=== PATIENT | male | born 1980 | race Caucasian/White ===

== ENCOUNTER 2017-02-09 17:48 | Emergency (ER) | payer SELFPAY ==
[2017-02-09 17:54] VITALS: O2SAT 98
--- NOTE | 2017-02-09 18:19 | C.PDOC ---
History Of Present Illness 36 y/o male presents to the ED for evaluation of right upper quadrant abdominal pain which has been occurring in intermittent episodes for the past 4 days. Patient describes his pain as sharp, 10/10 in severity and notes it is worse when he eats. Patient describes it as a nagging pain. Patient has PMHx of renal colic and appendectomy and notes his current symptoms feel similar to both. Patient also notes nausea and reports he vomited a small amount today. Patient has not been able to tolerate PO intake, states he could not eat breakfast. He also reports generalized weakness and malaise. He denies fever, chills headache , dizziness, chest pain and shortness of breath. Time Seen by Provider: 02/09/17 18:15 Chief Complaint (Nursing): Abdominal Pain History Per: Patient History/Exam Limitations: no limitations Onset/Duration Of Symptoms: Days (4), Intermittent Episodes Current Symptoms Are (Timing): Still Present Location Of Pain/Discomfort: RUQ Quality Of Discomfort: "Pain" Associated Symptoms: denies: Fever, Chills Additional History Per: Patient Past Medical History Reviewed: Historical Data, Nursing Documentation, Vital Signs Vital Signs: Last Vital Signs Temp 98.5 F 02/09/17 17:52 Pulse 70 02/09/17 17:52 Resp 19 02/09/17 17:52 BP 116/67 02/09/17 17:52 Pulse Ox 98 02/09/17 18:45 - Medical History PMH: Back Problems, Kidney Stones Surgical History: Appendectomy Family History: States: Unknown Family Hx - Social History Hx Tobacco Use: No Hx Alcohol Use: Yes Hx Substance Use: Yes - Immunization History Hx Tetanus Toxoid Vaccination: No Hx Influenza Vaccination: No Hx Pneumococcal Vaccination: No Review Of Systems Constitutional: Positive for: Weakness, Malaise. Negative for: Fever, Chills Cardiovascular: Negative for: Chest Pain Respiratory: Negative for: Shortness of Breath Gastrointestinal: Positive for: Abdominal Pain (RUQ) Neurological: Negative for: Headache, Dizziness Physical Exam - Physical Exam Appears: Non-toxic, No Acute Distress, Other (+painful distress ) Skin: Normal Color, Warm, Dry Head: Atraumatic, Normacephalic Eye(s): bilateral: Normal Inspection Ear(s): Bilateral: Normal Nose: Normal, No Discharge Oral Mucosa: Moist Throat: Normal, No Erythema, No Exudate Neck: Normal ROM, Supple Chest: Symmetrical, No Deformity, Tenderness (costovertebral angle) Cardiovascular: Rhythm Regular, No Murmur Respiratory: Normal Breath Sounds, No Rales, No Rhonchi, No Wheezing Gastrointestinal/Abdominal: Tenderness (RUQ ), No Guarding, No Rebound Back: Normal Inspection, No Vertebral Tenderness Extremity: Normal ROM, Capillary Refill (less than 2 seconds ) Neurological/Psych: Normal Speech, Normal Cognition ED Course And Treatment - Laboratory Results Result Diagrams: 02/09/17 18:30 02/09/17 18:30 O2 Sat by Pulse Oximetry: 98 (on RA) Pulse Ox Interpretation: Normal Medical Decision Making Medical Decision Making: Impression: 36 y/o male with RUQ pain Differential Diagnoses: cholecystitis vs renal colic Progress: labs, US Abdomen ordered and reviewed. Patient received Donnataol PO, Lidocaine 2% Viscous, Maalox PO, Morphine IV, Pepcid IV, Toradol IV, and IVF. Disposition - Disposition Disposition Time: 18:59 Condition: GUARDED - Clinical Impression Clinical Impression: Abdominal pain - Scribe Statement The provider has reviewed the documentation as recorded by the Scribe (Joan Cobian) Provider Attestation: All medical record entries made by the Scribe were at my direction and personally dictated by me. I have reviewed the chart and agree that the record accurately reflects my personal performance of the history, physical exam, medical decision making, and the department course for this patient. I have also personally directed, reviewed, and agree with the discharge instructions and disposition. Physician Patient Turnover Patient Signed Over To: José Luis Soto Handoff Comments: RUQ pain, pending US
[2017-02-09] MEDS ORDERED: Sodium Chloride 0.9% 1,000 ML IV ONE (18:20)
[2017-02-09] MEDS ORDERED: Lidocaine 2% Viscous 100 ml PO STA (18:20)
[2017-02-09] MEDS ORDERED: Belladonna-Phenobarbital PO STA (18:20)
[2017-02-09] MEDS ORDERED: Aluminum Hydroxide/Magnesium Hydroxide Susp (30 mL) PO STA (18:20)
[2017-02-09] MEDS ORDERED: Sodium Chloride 0.9% 1,000 ML ONE (18:33)
[2017-02-09] MEDS ORDERED: Aluminum Hydroxide/Magnesium Hydroxide Susp (30 mL) ONE (18:35)
[2017-02-09 18:40] LABS: BASO # 0.1 K/uL (0.0-0.2); BASO % 0.7 % (0.0-2.0); EOS # 0.2 K/uL (0.0-0.7); EOS % 1.7 % (0.0-4.0); HEMOGLOBIN 14.9 g/dL (12.0-18.0); LYMPH # 2.5 K/uL (1.0-4.3); LYMPH % 27.2 % (20.0-40.0); MEAN CELL VOLUME 93.2 fL (80.0-94.0); MEAN CORPUSCULAR HEMOGLOBIN 31.7 pg (27.0-31.0); MEAN CORPUSCULAR HGB CONC 34.1 g/dL (33.0-37.0); MEAN PLATELET VOLUME 9.5 fL (7.2-11.7); MONO # 0.7 K/uL (0.0-0.8); MONO % 7.8 % (0.0-10.0); NEUT # 5.8 K/uL (1.8-7.0); NEUT % 62.6 % (50.0-75.0); RBC 4.7 Mil/uL (4.40-5.90); RED CELL DISTRIBUTION WIDTH 12.4 % (11.5-14.5); WHITE BLOOD COUNT 9.3 K/uL (4.8-10.8)
[2017-02-09 18:42] LABS: URINE BILIRUBIN NEGATIVE (NEGATIVE); URINE BLOOD NEGATIVE (NEGATIVE); URINE CLARITY Clear (Clear); URINE COLOR Straw (YELLOW); URINE GLUCOSE (UA) NORMAL (Normal); URINE LEUKOCYTE ESTERASE NEG Leu/uL (Negative); URINE NITRATE NEGATIVE (NEGATIVE); URINE PROTEIN NEGATIVE (NEGATIVE); URINE UROBILINOGEN NORMAL mg/dL (0.2-1.0)
[2017-02-09 18:46] LABS: ALBUMIN 4.1 g/dL (3.5-5.0); BARBITURATES, UR NEGATIVE (NEGATIVE)
[2017-02-09 18:47] LABS: BENZODIAZEPINES, UR NEGATIVE (NEGATIVE)
[2017-02-09 18:49] LABS: GFR AFRICAN-AMERICAN > 60; GFR NON-AFRICAN AMERICAN > 60; PROTHROMBIN TIME 11.6 SECONDS (9.7-12.2)
[2017-02-09 18:50] LABS: ALB/GLOB RATIO 1.6 (1.0-2.1); ALT/SGPT 27 U/L (21-72); AST/SGOT 19 U/L (17-59); BLOOD UREA NITROGEN 8 mg/dL (9-20); CALCIUM 8.9 mg/dl (8.6-10.4); LIPASE 59 U/L (23-300); OPIATES, UR NEGATIVE (NEGATIVE); PHENCYCLIDINE, UR NEGATIVE (NEGATIVE)
[2017-02-09] MEDS ORDERED: Belladonna-Phenobarbital ONE ×2 (19:28→20:46)
--- NOTE | 2017-02-09 20:26 | US ---
EXAM: US Abdomen Limited, Right Upper Quadrant CLINICAL HISTORY: 36 years old, male; Pain; Abdominal pain; Epigastric; Additional info: Abd pain TECHNIQUE: Real-time ultrasound of the right upper quadrant with image documentation. EXAM DATE/TIME: 02/09/2017 6:22 PM COMPARISON: There are no prior studies for comparison. FINDINGS: Liver: Liver is unremarkable.There is hepatopedal flow in the main portal vein. Gallbladder: Gallbladder is distended with no stones, sludge or wall thickening. Common bile duct: Common bile duct measures 4.4 mm in diameter in the rose hepatis Pancreas: Pancreas is partially obscured by bowel gas. Visualized portion is unremarkable. Right kidney: Right kidney is unremarkable. Aorta: Visualized portions of the aorta and inferior vena cava are unremarkable. IMPRESSION: Slightly limited visualization of the pancreas, study is otherwise normal
[2017-02-09] MEDS ORDERED: Pantoprazole 40 mg EC Tab PO STA (21:17)
[2017-02-09] MEDS ORDERED: Pantoprazole 40 mg EC Tab PO ONE (21:22)
[2017-02-09 21:31] VITALS: BP 106/60; PULSE 60; RESP 16; TEMP 98.1
== END 2017-02-09 21:32 | disposition home or self-care (01) ==
LOC: C.ER 17:48
DX: R10.11 Right upper quadrant pain (principal)
CPT/HCPCS: 76705; 80053; 81001; 83690; 85025; 85610; 85730; 96361; 96374; 96375; 99284; G0480; J1885; J2270; J7040

== ENCOUNTER 2017-08-15 22:02 | Emergency (ER) | payer OTHER ==
[2017-08-15] MEDS ORDERED: MethylPREDNISolone 40 mg Vial IM STA (23:00)
[2017-08-15 23:02] VITALS: BP 127/75; PULSE 83; RESP 20; TEMP 98.3; O2SAT 98
[2017-08-15] MEDS ORDERED: MethylPREDNISolone 40 mg Vial ONE (23:08)
--- NOTE | 2017-08-15 23:56 | C.PDOC ---
History Of Present Illness 36 year old male presents to the ED c/o sudden onset rash which is described as itchiness all over his body that started at approximately 14:00 today. Patient is unsure of any new foods that maybe have cause his symptoms. Patient denies fever, chills, nausea, vomit, diarrhea, abdominal pain, tongue swelling, throat swelling, lip swelling, recent travel, sick contacts. Time Seen by Provider: 08/15/17 22:42 Chief Complaint (Nursing): Abnormal Skin Integrity History Per: Patient History/Exam Limitations: no limitations Current Symptoms Are (Timing): Still Present Quality Of Symptoms: Itching Recent travel outside of the [place]: No Additional History Per: Patient Past Medical History Reviewed: Historical Data, Nursing Documentation, Vital Signs Vital Signs: Last Vital Signs Temp 98.3 F 08/15/17 22:27 Pulse 83 08/15/17 22:27 Resp 20 08/16/17 00:07 BP 127/75 08/15/17 22:27 Pulse Ox 98 08/17/17 05:45 - Medical History PMH: Back Problems, Kidney Stones, Sexually Transmitted Disease Surgical History: Appendectomy Family History: States: Unknown Family Hx - Social History Hx Tobacco Use: No Hx Alcohol Use: Yes Hx Substance Use: No (stopped) - Immunization History Hx Tetanus Toxoid Vaccination: No Hx Influenza Vaccination: No Hx Pneumococcal Vaccination: No Review Of Systems Constitutional: Negative for: Fever, Chills Cardiovascular: Negative for: Chest Pain, Palpitations Respiratory: Negative for: Cough, Shortness of Breath Gastrointestinal: Negative for: Nausea, Vomiting, Abdominal Pain, Diarrhea Skin: Positive for: Rash Neurological: Negative for: Weakness, Numbness Physical Exam - Physical Exam Appears: Non-toxic, No Acute Distress Skin: Warm, Dry, Rash (Urticarial all over body) Head: Atraumatic, Normacephalic Eye(s): bilateral: Normal Inspection Nose: No Discharge, No Deformity Oral Mucosa: Moist Tongue: No Swelling Lips: No Swelling Throat: Normal, No Erythema, No Exudate Chest: Symmetrical Cardiovascular: Rhythm Regular, No Murmur Respiratory: Normal Breath Sounds, No Rales, No Rhonchi, No Wheezing Gastrointestinal/Abdominal: Soft, No Tenderness, No Guarding, No Rebound Extremity: Normal ROM, No Pedal Edema, No Calf Tenderness, No Deformity, No Swelling Neurological/Psych: Oriented x3, Normal Speech, Normal Cognition Gait: Steady ED Course And Treatment O2 Sat by Pulse Oximetry: 98 (On RA) Pulse Ox Interpretation: Normal Medical Decision Making Medical Decision Making: Plan: * benadryl 25 mg PO * pepcid 20 mg PO * solumedrol 80 mg IM On re-exam, the patient reports improvement of symptoms. Airways are patent. Lungs are CTA, no stridor, heart is RRR. Pulse Ox: Ambulatory in the ED with steady gait. Disposition - Disposition Referrals: Ar Moore MD [Staff Provider] - Disposition: HOME/ ROUTINE Disposition Time: 23:55 Condition: GOOD Additional Instructions: Follow up with your primary medical doctor or clinic in 2-5 days for further evaluation. Take medications as prescribed. Return to the emergency department at any time if symptoms persist or worsen. 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 - Scribe Statement The provider has reviewed the documentation as recorded by the Scribe John Trinidad All medical record entries made by the Scribe were at my direction and personally dictated by me. I have reviewed the chart and agree that the record accurately reflects my personal performance of the history, physical exam, medical decision making, and the department course for this patient. I have also personally directed, reviewed, and agree with the discharge instructions and disposition.
== END 2017-08-16 00:07 | disposition home or self-care (01) ==
LOC: C.ER 22:02
DX: L50.9 Urticaria, unspecified (principal)
CPT/HCPCS: 96372; 99282; J2920

== ENCOUNTER 2018-10-21 10:58 | Emergency (ER) | payer OTHER ==
--- NOTE | 2018-10-21 12:33 | C.PDOC ---
History Of Present Illness 38 y/o male c/o urinary frequency and urethral discomfort x 3 days. c/o blood in stool last week after straining to have bm after eating meat. no fever or chills, no vomiting. denies penile discharge. Time Seen by Provider: 10/21/18 11:52 Chief Complaint (Nursing): Male Genitourinary History Per: Patient Onset/Duration Of Symptoms: Days (3) Current Symptoms Are (Timing): Still Present Quality Of Discomfort: Other (discomfort) Associated Symptoms: Urinary Symptoms (urinary frequency), Other (urethral discomfort). denies: Fever, Chills, Vomiting Past Medical History Reviewed: Historical Data, Nursing Documentation, Vital Signs Vital Signs: Last Vital Signs Temp 98.7 F 10/21/18 11:09 Pulse 80 10/21/18 11:09 Resp 18 10/21/18 11:09 BP 115/74 10/21/18 11:09 Pulse Ox 96 10/21/18 11:09 - Medical History PMH: Back Problems, Kidney Stones (bilateral), Sexually Transmitted Disease (Genital herpes) Surgical History: Appendectomy Family History: States: Unknown Family Hx - Social History Hx Tobacco Use: No Hx Alcohol Use: Yes Hx Substance Use: No (stopped) - Immunization History Hx Tetanus Toxoid Vaccination: No Hx Influenza Vaccination: No Hx Pneumococcal Vaccination: No Review Of Systems Constitutional: Negative for: Fever, Chills, Weakness Gastrointestinal: Positive for: Hematochezia. Negative for: Vomiting Genitourinary: Positive for: Frequency, Other (urethral discomfort). Negative for: Penile Discharge Neurological: Negative for: Weakness, Numbness, Dizziness Physical Exam - Physical Exam Appears: Well, Non-toxic, No Acute Distress Skin: Normal Color, Warm, Dry Head: Atraumatic, Normacephalic Eye(s): bilateral: PERRL, EOMI Oral Mucosa: Moist Neck: Normal ROM, Supple Chest: Symmetrical, No Deformity Cardiovascular: Rhythm Regular, No Murmur Respiratory: No Accessory Muscle Use, No Rales, No Rhonchi, No Wheezing Gastrointestinal/Abdominal: Soft, No Tenderness Male Genital: Testicular Tenderness (bilaterally), No Testicular Swelling (enlargement), Circumcised, No Other (erythema, penile discharge, penile les ions. exasm chaperoned by KEITH Schultz) Extremity: Capillary Refill (<2 seconds) Neurological/Psych: Oriented x3, Normal Speech, Normal Cognition ED Course And Treatment - Laboratory Results Result Diagrams: 10/21/18 12:45 10/21/18 12:45 O2 Sat by Pulse Oximetry: 96 (in RA) - CT Scan/US Testicular US Other Rad Studies (CT/US): Interpreted By Me, Read By Radiologist CT/US Interpretation: IMPRESSION: Bilateral epididymal cysts. Medical Decision Making Medical Decision Making: Impression: 38 y/o male c/o urinary frequency and urethral discomfort x 3 days. Plan: Lab ordered with CBC, chlamydia/GC, urine culture, and UA. Testicular US ordered. Patient given Tylenol PO. pt treated for gc and chlamydia, ua neg for infections, teste sono shows epidydmal cysts. will refere to urology. guaiac neg for blood. d/c with colace. Disposition Counseled Patient/Family Regarding: Studies Performed, Diagnosis, Need For Followup, Rx Given - Disposition Referrals: Rick Brumfield MD [Staff Provider] - [facility] [Outside] Disposition: HOME/ ROUTINE Disposition Time: 16:03 Condition: GOOD Additional Instructions: Please take colace and increase fiber in diet to avoid having hard stool and straining during bowel movement, Follow up with urologist, Dr Brumfield. Safe sex only. Always use condoms. 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 (Lorraine Lopez) - Scribe Statement The provider has reviewed the documentation as recorded by the Scribe (Lorraine Lopez) All medical record entries made by the Scribe were at my direction and personally dictated by me. I have reviewed the chart and agree that the record accurately reflects my personal performance of the history, physical exam, medical decision making, and the department course for this patient. I have also personally directed, reviewed, and agree with the discharge instructions and disposition.
[2018-10-21 12:49] LABS: BASO % 0.8 % (0.0-2.0); EOS # 0.1 K/uL (0.0-0.7); EOS % 2.7 % (0.0-4.0); HEMOGLOBIN 15.3 g/dL (12.0-18.0); LYMPH # 1.7 K/uL (1.0-4.3); LYMPH % 33.1 % (20.0-40.0); MEAN CORPUSCULAR HEMOGLOBIN 31.6 pg (27.0-31.0); MEAN CORPUSCULAR HGB CONC 33.6 g/dL (33.0-37.0); MEAN PLATELET VOLUME 8.4 fL (7.2-11.7); MONO # 0.5 K/uL (0.0-0.8); MONO % 9.8 % (0.0-10.0); NEUT # 2.7 K/uL (1.8-7.0); NEUT % 53.6 % (50.0-75.0); NRBC % 0.1 % (0.0-2.0); RBC 4.83 Mil/uL (4.40-5.90); RED CELL DISTRIBUTION WIDTH 12.5 % (11.5-14.5); WHITE BLOOD COUNT 5.1 K/uL (4.8-10.8)
[2018-10-21 12:53] LABS: MEAN CELL VOLUME 94.1 fL (80.0-94.0)
[2018-10-21 12:54] LABS: URINE BILIRUBIN NEGATIVE (NEGATIVE); URINE BLOOD NEGATIVE (NEGATIVE); URINE CLARITY Clear (Clear); URINE COLOR Straw (YELLOW); URINE GLUCOSE (UA) NORMAL (Normal); URINE LEUKOCYTE ESTERASE NEG Leu/uL (Negative); URINE PROTEIN NEGATIVE (NEGATIVE); URINE UROBILINOGEN NORMAL mg/dL (0.2-1.0)
[2018-10-21 13:02] LABS: ALB/GLOB RATIO 1.8 (1.0-2.1); ALBUMIN 4.7 g/dL (3.5-5.0); ALT/SGPT 21 U/L (21-72); AST/SGOT 36 U/L (17-59); BLOOD UREA NITROGEN 12 mg/dL (9-20); CALCIUM 9.5 mg/dl (8.6-10.4); GFR NON-AFRICAN AMERICAN > 60
--- NOTE | 2018-10-21 14:20 | US ---
Date of service: 10/21/2018 HISTORY: bilateral teste pain TECHNIQUE: Realtime sonography through the scrotum with color and doppler flow. COMPARISON: None Available. FINDINGS: RIGHT TESTICLE: Measures 3.9 x 2.5 x 3.6 cm. Homogeneous echotexture. Blood flow is demonstrated. RIGHT EPIDIDYMIS: 0.4 x 0.3 x 0.4 cm cyst. LEFT TESTICLE: Measures 3.3 x 2.0 x 3.0 cm. Homogeneous echotexture. Blood flow is demonstrated. LEFT EPIDIDYMIS: 0.5 x 0.3 x 0.4 cm cyst. HYDROCELE: None. VARICOCELE: None. OTHER FINDINGS: None. IMPRESSION: Bilateral epididymal cysts.
[2018-10-21 14:25] VITALS: RESP 16
[2018-10-21] MEDS ORDERED: cefTRIAXone (Rocephin) 250 mg Inj IM STA (14:42)
[2018-10-21 16:19] VITALS: BP 115/72; PULSE 70; TEMP 98
[2018-10-21 16:53] VITALS: O2SAT 96
== END 2018-10-21 16:20 | disposition home or self-care (01) ==
LOC: C.ER 10:58
DX: N34.2 Other urethritis (principal); N50.3 Cyst of epididymis
CPT/HCPCS: 76870; 80053; 81001; 85025; 87086; 87491; 87591; 96372; 96374; 99285; G0328; J0696; J1885